=== PATIENT | male | born 1955 | race African-American/Black ===

== ENCOUNTER 2017-09-17 18:29 | Emergency (ER) | payer MEDICAID ==
[~2017-09-17] VITALS: Ht 175.3 cm; Wt 85.0 kg
[2017-09-17] MEDS ORDERED: LIDOCAINE/EPINEPHR/TETRACAINE 3ML TP ONE (19:15)
[2017-09-17] MEDS ORDERED: TETANUS, DIPHTHERIA, PERTUSSIS VAC/PF 0.5ML (>7YR OLD) IM ONE (19:15)
[2017-09-17] MEDS ORDERED: BACITRACIN ZINC OINT UDPKT TOP ONE (19:15)
[2017-09-17] MEDS ORDERED: LIDOCAINE HCL 1%/EPI 1:200,000 30 ML VIAL MC ONE (19:15)
[2017-09-17 22:00] VITALS: BP 126/74
== END 2017-09-17 22:42 | disposition home or self-care (01) ==
LOC: ER 19:43
DX: S01.01XA Laceration without foreign body of scalp, initial encounter (principal); S09.8XXA Other specified injuries of head, initial encounter; S02.2XXA Fracture of nasal bones, initial encounter for closed fracture; T51.91XA Toxic effect of unspecified alcohol, accidental (unintentional), initial encounter; R27.0 Ataxia, unspecified; F10.129 Alcohol abuse with intoxication, unspecified; Y90.8 Blood alcohol level of 240 mg/100 ml or more; Y08.89XA Assault by other specified means, initial encounter; Y93.9 Activity, unspecified; Y92.9 Unspecified place or not applicable
CPT/HCPCS: 12011; 36415; 70450; 90715; 99285; G0482; X7700; Z7610